=== PATIENT | female | born 1980 | race Caucasian/White ===

== ENCOUNTER 2017-05-12 18:35 | Emergency (ER) | payer OTHER ==
[~2017-05-12] VITALS: Ht 162.6 cm; Wt 72.6 kg
[2017-05-12 19:05] LABS: URINE BILIRUBIN NEGATIVE (Negative); URINE BLOOD NEGATIVE (Negative); URINE CLARITY CLEAR; URINE COLOR YELLOW; URINE GLUCOSE-RANDOM NEGATIVE (Negative); URINE KETONES TRACE (Negative); URINE LEUKOCYTES-REFLEX 1+ (Negative); URINE NITRITE-REFLEX NEGATIVE (Negative); URINE PROTEIN NEGATIVE (Negative); URINE SPECIFIC GRAVITY >= 1.030 (1.005-1.030); URINE UROBILINOGEN 0.2 E.U./dl (0.2-1.0)
[2017-05-12 19:11] LABS: CRYSTALS None Seen /LPF (None Seen); MUCUS 0-3 Light strn/LPF (None Seen); SQUAMOUS >10 Many /LPF (0-3)
[2017-05-12 19:12] LABS: CASTS None Seen /LPF (None Seen); URINE WBC-REFLEX 0-5 Rare /HPF (0-5)
[2017-05-12 19:14] LABS: URINE RBC None Seen /HPF (0-2)
[2017-05-12] MEDS ORDERED: BACTROBAN CREAM30 G1 TOP (20:18)
[2017-05-12] MEDS ORDERED: CIPRO500 MG PO (20:18)
[2017-05-12] MEDS ORDERED: FLAGYL500 MG PO (20:18)
[2017-05-12 20:54] VITALS: BP 129/79
== END 2017-05-12 20:30 | disposition home or self-care (01) ==
LOC: M.ERS 18:35
PROVIDERS: Physician Assistant
DX: N30.00 Acute cystitis without hematuria (principal); N76.0 Acute vaginitis; B96.89 Other specified bacterial agents as the cause of diseases classified elsewhere; J01.00 Acute maxillary sinusitis, unspecified; L08.9 Local infection of the skin and subcutaneous tissue, unspecified